=== PATIENT | male | born 1960 | race Caucasian/White ===

== ENCOUNTER 2017-08-19 07:47 | Emergency (ER) | payer OTHER ==
[2017-08-19] MEDS ORDERED: IBUPROFEN 400 MG TABLET (FP) PO ONE ×2 (08:15→08:46)
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
[2017-08-19] MEDS ORDERED: DIPHTH,PERTUSS(ACELL),TET 0.5 ML DISP.SYRIN IM ONE (08:19)
[2017-08-19 08:45] VITALS: PULSE 53; TEMP 97.7; BMI 21.1
[2017-08-19 09:15] VITALS: BP 153/87
== END 2017-08-19 09:21 | disposition home or self-care (01) ==
LOC: FER 07:47
PROC: 3E0234Z Introduction of Serum, Toxoid and Vaccine into Muscle, Percutaneous Approach (ICD-10-PCS; principal; 2017-08-19)
DX: S42.022A Displaced fracture of shaft of left clavicle, initial encounter for closed fracture (principal); T14.8XXA Other injury of unspecified body region, initial encounter; V18.4XXA Pedal cycle driver injured in noncollision transport accident in traffic accident, initial encounter; Y93.55 Activity, bike riding; Y92.9 Unspecified place or not applicable; J45.909 Unspecified asthma, uncomplicated
CPT/HCPCS: 73000-TC-LT-FY; 90715; 99282-25